=== PATIENT | female | born 1990 | race Caucasian/White ===

== ENCOUNTER 2017-05-27 11:05 | Day surgery (SDC) | payer OTHER ==
[2017-05-27 12:09] VITALS: BMI 24.2
[2017-05-27] MEDS ORDERED: Lactated Ringer's 1,000 ML IV SCH (12:30)
--- NOTE | 2017-05-27 12:34 | PDOC.LDHP ---
Labor and Delivery H&P Chief complaint: other (28 weeks s/p fall at 1100 this am.) HPI: 26 year old patient of Dr Murray here s/p fall this AM at 1100. She states that she was helping her off the home porch when she tripped and fell offf porch and hit lower right abdomen. States she may have urinated in herself vs LOF. No contractions. Some decreased FM since fall. EGA= 28 weeks. Current gestational age (weeks): 28 (0 days) Due date: 08/19/17 Dating criteria: last menstrual period Grav: 4 Para: 2 (Living one (one IUFD following urosepsis in past from renal stone)) Current complications: none, other (Taking vicodin for oral (tooth) abcess history..has had dental extractions.) Abnormal US findings: No Current medications: pre-jeremías vitamins, other (Hydrocodone prn) Allergies/Adverse Reactions: Allergies Allergy/AdvReac Type Severity Reaction Status Date / Time No Known Allergies Allergy Unverified 05/27/17 12:06 Social history: other (Around second hand smoke, but no personal HX of use.) - Physical Exam Vital signs reviewed and normal: yes General: NAD Heart: RRR Lungs: CTAB Abdomen: gravid (slight contusion rt lower abdomen (has tatoo)) FHT: variability present (compatible with 28 week gestation, no decels) [place] contractions every: none - Assessment s/p OB fall at 28 weeks. - Plan Plan: observation in L&D (1. Type and RH 2. Rhogam if negative after KB test 3. 4-6 hour obs 4. R/O abruption from fall is clinical: so, we will monitor NST and toco for 4-6 hours. 5. Hold on labs for now as non-specific 6. Order Amnisure. 7. IV hydration for conservative care. Contact Dr murray if admitted or at final disposition.)
[2017-05-27 13:48] LABS: #Lymphocytes 1.6 thou/uL (1.20-3.40); #Monocytes 0.5 thou/uL (0.11-0.59); #Neutrophils 8.4 thou/uL (1.40-6.50); %Basophils 0.4 % (0.0-1.0); %Eosinophils 0.3 % (0.0-10.0); %Lymphocytes 14.9 % (21.0-51.0); %Monocytes 4.4 % (0.0-10.0); Hematocrit 35.4 % (36.0-47.0); White Blood Cell (WBC) Count 10.5 thou/uL (4.8-10.8)
[2017-05-27 14:02] LABS: Amnisure Test No Membranes Rupture (No Rupture)
--- NOTE | 2017-05-27 15:20 | PDOC.EVN ---
Event Note - Event Note Event Note: Amnisure negative. RH pos. No evidence ROM or PTL. No clinical evidence abruption. Home in one more HR.
== END 2017-05-27 16:30 | disposition home or self-care (01) ==
LOC: L&D/OP 11:05
PROVIDERS: ATTEND Family Medicine
DX: Z04.3 Encounter for examination and observation following other accident (principal); O36.8130 Decreased fetal movements, third trimester, not applicable or unspecified; Z79.899 Other long term (current) drug therapy; Z3A.28 28 weeks gestation of pregnancy; W01.198A Fall on same level from slipping, tripping and stumbling with subsequent striking against other object, initial encounter
CPT/HCPCS: 84112; 85025; 86900; 86901; 96360; 96361

== ENCOUNTER 2022-06-07 15:30 | Inpatient (IN) | payer OTHER ==
[2022-06-07 15:57] VITALS: BMI 22.1
[2022-06-07] MEDS ORDERED: Acetaminophen 325 MG TAB PO PRN (16:25)
[2022-06-07] MEDS ORDERED: Guaifenesin DM 100-10/5 ML UDCUP PO PRN (16:25)
[2022-06-07] MEDS ORDERED: Ondansetron PF 4 MG/2 ML Vial IVP PRN (16:25)
[2022-06-07] MEDS ORDERED: HYDROcodone/Acetaminophen 5/325 mg Tablet PO PRN (16:25)
[2022-06-07] MEDS ORDERED: Ondansetron ODT 4 MG TAB PO PRN (16:25)
[2022-06-07] MEDS ORDERED: Senokot S 8.6-50 MG TAB PO PRN (16:25)
[2022-06-07] MEDS ORDERED: Albuterol Sulfate 2.5 mg/3 ml Neb NEB PRN (16:48)
[2022-06-07] MEDS ORDERED: Ibuprofen 800 MG TAB PO PRN (16:52)
[2022-06-07] MEDS ORDERED: methylPREDNISolone Sod Succ 40 MG VIAL IVP SCH (17:00)
[2022-06-07] MEDS: Sodium Chloride 0.9% 1,000 ML IV SCH ×2 (17:26→20:03)
[2022-06-07] MEDS: Oseltamivir 75 MG CAP PO SCH (17:34)
[2022-06-07 17:38] LABS: Albumin 3.6 g/dL (3.5-5.0); Anion Gap 13 mmol/L (10-20); BUN (Urea Nitrogen) 14 mg/dL (7.0-18.7); BUN/Creatinine Ratio 20.29; Calc. Creatinine Clearance 115 mL/min (70-130); Calcium 8.6 mg/dL (7.8-10.44); Carbon Dioxide 25 mmol/L (22-29); Chloride 103 mmol/L (98-107); Estimated GFR 120; Glucose 124 mg/dL (70-105); Phosphorus 3.4 mg/dL (2.3-4.7); Potassium 3.6 mmol/L (3.5-5.1); Sodium 137 mmol/L (136-145)
[2022-06-07] MEDS ORDERED: cefTRIAXone\\ROCEPHIN 2 GM in Sodium Chloride 0.9% 100 ML IVPB SCH (20:00)
[2022-06-07] MEDS: Famotidine 20 MG TAB PO SCH (20:04)
[2022-06-07 23:43] LABS: Bilirubin Negative (Negative); Blood, Urine 3+ (Negative); CAUTI Indications for Culture Fever or rigors; Clarity Turbid (Clear); Glucose, Urine (Dipstick) Normal (Negative); Ketone, Urine Negative (Negative); Leukocyte Negative Leu/uL (Negative); Nitrite Negative (Negative); Protein, Urine (Dipstick) 100 mg/dL (Neg-Trace); Specific Gravity, Urine 1.041 (1.002-1.036); Urobilinogen 3 mg/dL (Less than 2); pH, Urine 6.5 (5.0-9.0)
[2022-06-07 23:45] LABS: Bacteria/HPF Rare-Few HPF (None Seen)
[2022-06-07 23:46] LABS: Urine Culture Reflex No No
[2022-06-08] MEDS: Oseltamivir 75 MG CAP PO SCH (05:27)
[2022-06-08] MEDS ORDERED: predniSONE 20 MG TAB PO SCH (08:00)
[2022-06-08] MEDS: Famotidine 20 MG TAB PO SCH (08:13)
[2022-06-08 08:39] LABS: #Lymphocytes 0.5 thou/uL (1.20-3.40); #Monocytes 0.3 thou/uL (0.11-0.59); %Basophils 0.5 % (0.0-1.0); %Eosinophils 0.2 % (0.0-10.0); %Lymphocytes 13.7 % (21.0-51.0); %Neutrophils 77.6 % (42.0-75.0); Hemoglobin 12.1 g/dL (12.0-16.0); Mean Corpuscular HGB CONC 31.1 g/dL (32.0-36.0); Mean Corpuscular Hemoglobin 27.2 pg (27.0-31.0); Mean Corpuscular Volume 87.4 fl (78.0-98.0); Mean Platelet Volume 8.7 fL (7.4-10.4); Platelet Count 162 10x3/uL (130-400); RBC Distribution Width 15.4 % (11.5-14.5); Red Blood Cell (RBC) Count 4.45 mill/uL (4.20-5.40); White Blood Cell (WBC) Count 3.8 10x3/uL (4.8-10.8)
[2022-06-08 09:00] LABS: Anion Gap 15 mmol/L (10-20); BUN (Urea Nitrogen) 14 mg/dL (7.0-18.7); Calc. Creatinine Clearance 124 mL/min (70-130); Calcium 9.2 mg/dL (7.8-10.44); Carbon Dioxide 23 mmol/L (22-29); Chloride 106 mmol/L (98-107); Estimated GFR 123; Glucose 116 mg/dL (70-105); Potassium 4.2 mmol/L (3.5-5.1); Sodium 140 mmol/L (136-145)
[2022-06-08] MEDS ORDERED: Enoxaparin Sodium 40 MG/0.4 ML SYRINGE SC SCH (09:00)
[2022-06-08] MEDS ORDERED: Doxycycline 100 MG CAP PO SCH (09:00)
[2022-06-08 11:49] VITALS: BP 142/88; TEMP 98.3
== END 2022-06-08 12:07 | disposition home or self-care (01) | DRG 193 ==
LOC: T4-A 15:54 → OBSVTOIN 16:25
PROVIDERS: ADMIT Hospitalist; ATTEND Family Medicine
DX: J10.00 Influenza due to other identified influenza virus with unspecified type of pneumonia (principal); J96.01 Acute respiratory failure with hypoxia; F17.210 Nicotine dependence, cigarettes, uncomplicated; F11.10 Opioid abuse, uncomplicated; F19.10 Other psychoactive substance abuse, uncomplicated; Z98.890 Other specified postprocedural states; Z79.51 Long term (current) use of inhaled steroids; Z83.3 Family history of diabetes mellitus; Z80.3 Family history of malignant neoplasm of breast
CPT/HCPCS: 36415; 71045; 80048; 83605; 84145; 85025; 86140; 87070; 87205; 94640; J0696; J1650; J2920; J3490; J7050; J7512; J7620